=== PATIENT | female | born 1975 | race Caucasian/White ===

== ENCOUNTER 2017-04-09 09:52 | Outpatient (CLI) | payer BC ==
[2017-04-09] MEDS ORDERED: BUPIVACAINE /PF 0.25% 30 ML VIAL INJ ONE (10:16)
[2017-04-09] MEDS ORDERED: LIDOCAINE 1%, 20 ML MDV 20 ML ONE (10:17)
[2017-04-09] MEDS ORDERED: methylPREDNISolone ACETATE 80 MG/ML ONE (10:19)
[2017-04-09] MEDS ORDERED: NS 50 ML IV ONE (10:20)
[2017-04-09] MEDS ORDERED: IOHEXOL 50 ML IV ONE (10:24)
== END 2017-04-09 21:00 | disposition home or self-care (01) ==
LOC: SRD 09:52
PROVIDERS: ATTEND Family Medicine
DX: M16.11 Unilateral primary osteoarthritis, right hip (principal)
CPT/HCPCS: 73525; J1040; J2001; J3490; Q9967